=== PATIENT | male | born 1975 ===

== ENCOUNTER 2017-09-09 21:47 | Emergency (ER) | payer SELFPAY ==
[2017-09-09 21:59] VITALS: TEMP 97.6; O2SAT 98
[2017-09-09 22:01] VITALS: BMI 25.1
[2017-09-09] MEDS ORDERED: TDAP Vaccine 0.5 mL Syr IM ONE (22:36)
[2017-09-09] MEDS ORDERED: LIDOCAIN/EPI 1-0.001% 10ML INJ SOL IJ ONE (22:36)
--- NOTE | 2017-09-09 22:41 | ED PDOC ---
Arrival/HPI - General Chief Complaint: Abnormal Skin Integrity Time Seen by Provider: 09/09/17 22:25 Historian: Patient - History of Present Illness Narrative History of Present Illness (Text): 09/09/17 22:36 This 42 yo male who soheila PMH, presents to this ED c/o right hand laceration x [employer]. Patient stated he cut his hand with utility knife at work. Last tetanus is UKN. Patient has FROM of his hands and fingers. Denies other complains. Time/Duration: Other (see hpi) Context: Home Past Medical History - Provider Review Nursing Documentation Reviewed: Yes - Infectious Disease Hx of Infectious Diseases: None - Psychiatric Hx Substance Use: No Family/Social History - Physician Review Nursing Documentation Reviewed: Yes Family/Social History: Other (noncontributory) Smoking Status: Never Smoked Hx Alcohol Use: Yes Frequency of alcohol use: Socially Hx Substance Use: No Allergies/Home Meds Allergies/Adverse Reactions: Allergies No Known Allergies Allergy (Verified 09/09/17 21:59) Review of Systems - Review of Systems Constitutional: Normal. absent: Fatigue, Weight Change, Fevers, Night Sweats Eyes: Normal ENT: Normal Respiratory: Normal Cardiovascular: Normal Gastrointestinal: Normal Genitourinary Male: Normal Musculoskeletal: Normal Skin: Laceration (right hand laceration) Neurological: Normal Endocrine: Normal Hemo/Lymphatic: Normal Psychiatric: Normal Physical Exam Vital Signs Temp Pulse Resp BP Pulse Ox 09/09/17 21:58 97.6 F 69 19 161/94 H 98 Temperature: Afebrile Blood Pressure: Normal Pulse: Regular Respiratory Rate: Normal Appearance: Positive for: Well-Appearing, Non-Toxic, Comfortable Pain Distress: None Mental Status: Positive for: Alert and Oriented X 3 - Systems Exam Head: Present: Atraumatic, Normocephalic Pupils: Present: PERRL Extroacular Muscles: Present: EOMI Conjunctiva: Present: Normal Mouth: Present: Moist Mucous Membranes Neck: Present: Normal Range of Motion Abdomen: No: Tenderness, Distention, Peritoneal Signs Upper Extremity: Present: Normal ROM, NORMAL PULSES, Neurovascularly Intact, Capillary Refill < 2s, Other ((+) 2.7 am laceration over thenar aspect of left hand. No deep structures visualized). No: Cyanosis, Edema Lower Extremity: Present: Normal Inspection. No: Edema Neurological: Present: GCS=15, CN II-XII Intact, Speech Normal, Motor Func Grossly Intact, Normal Sensory Function, Normal Cerebellar Funct, Gait Normal Skin: Present: Warm, Dry, Normal Color. No: Rashes Psychiatric: Present: Alert, Oriented x 3, Normal Insight, Normal Concentration Medical Decision Making ED Course and Treatment: 09/09/17 23:47 Re-evaluation. Patient feels better. Discussed results and plan with patient who expresses understanding. All questions answered and there is agreement with the plan to discharge home with instructions. Patient stable for discharge. Return if symptoms persist or worsen. Re-evaluation Time: 23:48 Reassessment Condition: Re-examined, Improved - Medication Orders Current Medication Orders: Discontinued Medications Tetanus/Reduced Diphtheria/Acell Pertussis (Boostrix Vaccine Inj) 0.5 ml IM .ONCE ONE Stop: 09/09/17 22:37 Last Admin: 09/09/17 22:44 Dose: 0.5 ml Immunization Registry Document 09/09/17 22:44 BRYON (Rec: 09/09/17 22:44 [id number]) Immunization Registry Consent Date 09/09/17 - Procedure PROCEDURE NOTE (Text): 09/09/17 23:48 PROCEDURE: LACERATION REPAIR Performed by the emergency provider Location: left palm Length: 3.5 cm Description: clean wound edges, no foreign bodies Distal CMS: Normal. No deficits. Neurovascularly intact. Anesthesia: Lidocaine 1% with Epi. Approx. 3 cc Preparation: The wound was cleaned with NS and Betadyne. The area was prepped and draped in the usual sterile fashion. Exploration: The wound was explored and no foreign bodies were found. Procedure: The wound was closed with Vicryl, interrupted, single layer. There was good approximation. In total, 6 sutures were used. Post-Procedure: Good closure and hemostasis. The patient tolerated the procedure well and there were no complications. CSM remains intact. Post procedure dressing applied. Disposition/Present on Arrival - Present on Arrival Any Indicators Present on Arrival: No History of DVT/PE: No History of Uncontrolled Diabetes: No Urinary Catheter: No History of Decub. Ulcer: No History Surgical Site Infection Following: None - Disposition Have Diagnosis and Disposition been Completed?: Yes Diagnosis: Hand laceration Disposition: HOME/ ROUTINE Disposition Time: 23:53 Patient Plan: Discharge Condition: IMPROVED Discharge Instructions (ExitCare): Laceration Repair Additional Instructions: Call private doctor for wound check in 2-3 days. take medication as instructed. return to emergency if wound becomes infected. Keep wound clean and dry for 2 days, then clean wound with soap and water daily. Prescriptions: Cephalexin [Keflex] 500 mg PO QID #20 capsule Referrals: PCP,NO [Primary Care Provider] - Follow up with primary [facility] [Outside] - Follow up with primary [facility] [Outside] - Follow up with primary Forms: [employer] (Khmer)
[2017-09-10 02:20] VITALS: BP 161/83; PULSE 66; RESP 18
== END 2017-09-10 00:28 | disposition home or self-care (01) ==
LOC: ED 21:47
DX: S61.411A Laceration without foreign body of right hand, initial encounter (principal); W26.0XXA Contact with knife, initial encounter; Y92.89 Other specified places as the place of occurrence of the external cause; Y99.8 Other external cause status; Z23 Encounter for immunization